=== PATIENT | male | born 1975 | race Two or more races ===

== ENCOUNTER 2021-11-19 23:40 | Emergency (ER) | payer OTHER ==
[2021-11-19] MEDS ORDERED: SODIUM CHLORIDE 0.9% 1,000 ML IV STA (23:51)
[2021-11-20] MEDS ORDERED: INSULIN REGULAR HUMAN 100 UNIT/1 ML 10 ML MDV IVP STA
[2021-11-20 00:13] LABS: VBG BASE EXCESS -0.8 mmol/L (-2 - +2); VBG HCO3 25.3 mmol/L (23-28); VBG PCO2 46.6 mmHg (41-51); VBG PH 7.353 (7.31-7.41); VBG PO2 30.3 mmHg (25-47); VBG TOTAL CO2 26.8 mmol/L (24-29)
[2021-11-20 00:14] LABS: VBG OXYGEN SATURATION 64.1 % (60-80)
[2021-11-20 00:15] LABS: BASOPHILS % (AUTO) 0.8 %; EOSINOPHILS # (AUTO) 0.1 10^3/uL (0.0-0.7); EOSINOPHILS % (AUTO) 1.7 %; HCT - HEMATOCRIT 51.5 % (42.0-52.0); HGB - HEMOGLOBIN 17.8 g/dL (14.0-18.0); LYMPHOCYTES # (AUTO) 1.8 10^3/uL (1.5-3.5); LYMPHOCYTES % (AUTO) 35.1 %; MEAN CORPUSCULAR HEMOGLOBIN 30.6 pg (27.0-31.0); MEAN CORPUSCULAR HGB CONC 34.6 g/dL (32.0-36.0); MEAN CORPUSCULAR VOLUME 88.5 fL (80.0-94.0); MEAN PLATELET VOLUME 12.4 fL (7.4-11.4); MONOCYTES # (AUTO) 0.6 10^3/uL (0.0-1.0); MONOCYTES % (AUTO) 11.4 %; NEUTROPHILS # (AUTO) 2.6 10^3/uL (1.5-6.6); NEUTROPHILS % (AUTO) 50.4 %; PLT - PLATELET COUNT 138 10^3/uL (130-450); RED BLOOD COUNT 5.82 10^6/uL (4.70-6.10); RED CELL DISTRIBUTION WIDTH 12.6 % (12.0-15.0); WHITE BLOOD COUNT 5.2 x10^3/uL (4.8-10.8)
[2021-11-20 00:24] LABS: ALBUMIN 4.7 g/dL (3.2-5.5); ALBUMIN/GLOBULIN RATIO 1.3 (1.0-2.2); ALKALINE PHOSPHATASE 118 IU/L (42-121); ALT ALANINE AMINOTRANSFERASE 32 IU/L (10-60); AST ASPARTATE AMINOTRANSFERASE 21 IU/L (10-42); BILIRUBIN,TOTAL 0.7 mg/dL (0.2-1.0); BUN - BLOOD UREA NITROGEN 13 mg/dL (6-20); CALCIUM 9.7 mg/dL (8.5-10.3); CARBON DIOXIDE - CO2 28 mmol/L (21-32); CHLORIDE 95 mmol/L (101-111); CREATININE 0.9 mg/dL (0.6-1.2); GFR - MDRD 91 (>89); GLUCOSE 488 mg/dL (70-100); LIPASE 31 U/L (22-51); SODIUM 135 mmol/L (135-145); TOTAL PROTEIN 8.2 g/dL (6.7-8.2)
[2021-11-20 01:11] LABS: KETONES, SERUM (ACETEST) NEGATIVE (NEGATIVE)
--- NOTE | 2021-11-20 01:39 | ED Physician Documentation ---
History of Present Illness - Stated complaint Stated Complaint: HIGH BLOOD SUGAR - Chief complaint Chief Complaint: General - History obtained from History obtained from: Patient - Additonal information Additional information: 46-year-old male with past medical history of diabetes, previously controlled on diet alone, presents with hyperglycemia from home. Patient states that he has had fatigue and generalized malaise over the past couple of days and subjective fingerstick and it was elevated. denies fever/chills, cp, soa, cough, n/v, abd pain, diarrhea. Review of Systems Ten Systems: 10 systems reviewed and negative Constitutional: reports: Fatigue. denies: Fever, Chills Cardiac: denies: Chest pain / pressure Respiratory: denies: Dyspnea, Cough GI: denies: Abdominal Pain, Nausea, Vomiting, Diarrhea : reports: Frequency. denies: Dysuria PD PAST MEDICAL HISTORY - Past Medical History Past Medical History: Yes Cardiovascular: Hypertension, High cholesterol Endocrine/Autoimmune: Type 2 diabetes - Past Surgical History Past Surgical History: No - Present Medications Home Medications: Ambulatory Orders Medication Instructions Recorded Confirmed No Known Home Medications 11/19/21 11/19/21 - Allergies Allergies/Adverse Reactions: Allergies Allergy/AdvReac Type Severity Reaction Status Date / Time latex Allergy Rash Verified 11/19/21 23:48 - Social History Does the pt smoke?: No Smoking Status: Never smoker Does the pt drink ETOH?: No Does the pt have substance abuse?: No - Immunizations Immunizations are current?: Yes PD ED PE NORMAL - Vitals Vital signs reviewed: Yes - General General: Alert and oriented X 3, No acute distress, Well developed/nourished - HEENT HEENT: Atraumatic, PERRL, EOMI - Neck Neck: Supple, no meningeal sign - Cardiac Cardiac: RRR - Respiratory Respiratory: No respiratory distress, Clear bilaterally - Abdomen Abdomen: Non tender, Non distended - Back Back: No CVA TTP - Derm Derm: Normal color - Extremities Extremities: No deformity, No edema - Neuro Neuro: Alert and oriented X 3, No motor deficit, No sensory deficit - Psych Psych: Normal mood, Normal affect Results - Vitals Vitals: Vital Signs - 24 hr 11/19/21 11/20/21 23:45 00:58 Temperature 36.0 C L Heart Rate 94 88 Respiratory 18 18 Rate Blood Pressure 133/87 H 132/87 H O2 Saturation 99 98 Oxygen O2 Source Room air - Labs Labs: Laboratory Tests 11/19/21 11/19/21 11/19/21 23:52 23:52 23:52 WBC 5.2 RBC 5.82 Hgb 17.8 Hct 51.5 MCV 88.5 MCH 30.6 MCHC 34.6 RDW 12.6 Plt Count 138 MPV 12.4 H Neut # (Auto) 2.6 Lymph # (Auto) 1.8 Vance # (Auto) 0.6 Eos # (Auto) 0.1 Baso # (Auto) 0.0 Absolute Nucleated RBC 0.00 Nucleated RBC % 0.0 VBG pH 7.353 VBG pCO2 46.6 VBG pO2 30.3 VBG HCO3 25.3 VBG Total CO2 26.8 VBG O2 Saturation 64.1 VBG Base Excess -0.8 Sodium 135 Potassium 4.0 Chloride 95 L Carbon Dioxide 28 Anion Gap 12.0 BUN 13 Creatinine 0.9 Estimated GFR (MDRD) 91 Glucose 488 H POC Whole Bld Glucose Calcium 9.7 Total Bilirubin 0.7 AST 21 ALT 32 Alkaline Phosphatase 118 Total Protein 8.2 Albumin 4.7 Globulin 3.5 Albumin/Globulin Ratio 1.3 Lipase 31 Serum Ketones NEGATIVE 11/19/21 11/20/21 23:52 01:03 WBC RBC Hgb Hct MCV MCH MCHC RDW Plt Count MPV Neut # (Auto) Lymph # (Auto) Vance # (Auto) Eos # (Auto) Baso # (Auto) Absolute Nucleated RBC Nucleated RBC % VBG pH VBG pCO2 VBG pO2 VBG HCO3 VBG Total CO2 VBG O2 Saturation VBG Base Excess Sodium Potassium Chloride Carbon Dioxide Anion Gap BUN Creatinine Estimated GFR (MDRD) Glucose POC Whole Bld Glucose 417 H 213 H Calcium Total Bilirubin AST ALT Alkaline Phosphatase Total Protein Albumin Globulin Albumin/Globulin Ratio Lipase Serum Ketones PD MEDICAL DECISION MAKING - ED course ED course: 46yM with pmh DM, p/w hyperglycemia without signs of end organ damage or DKA. Improved with IV insulin treatment. patient plans to f/u with his pmd for referral to endocrinology. return precautions given. Departure - Departure Disposition: Home, Self Care Clinical Impression: Hyperglycemia, Fatigue Condition: Good Instructions: Hyperglycemia Comments: You are seen in the emergency department for hyperglycemia. You need to follow- up with your primary doctor to establish a diabetes regimen. Return to the emergency department for any new or worsening symptoms or other concerns.
[2021-11-20 02:01] VITALS: BP 138/72
[2021-11-20 12:58] LABS: ESTIMATED AVERAGE GLUCOSE 312 mg/dL (70-100); HEMOGLOBIN A1c% 12.5 % (4.27-6.07)
== END 2021-11-20 02:09 | disposition home or self-care (01) ==
LOC: ED 23:40
DX: E11.65 Type 2 diabetes mellitus with hyperglycemia (principal); R53.83 Other fatigue; I10 Essential (primary) hypertension
CPT/HCPCS: 36415; 80053; 82009; 82803; 83036; 83690; 85025; 99283; J1815

== ENCOUNTER 2022-03-03 14:54 | Outpatient (CLI) | payer OTHER ==
--- NOTE | 2022-03-03 17:35 | CT Report ---
PROCEDURE: Abdomen/Pelvis WO INDICATIONS: FLANK PAIN TECHNIQUE: Noncontrast 5 mm thick sections acquired from the diaphragms to the symphysis. 5 mm coronal and sagi ttal reformats were then performed. For radiation dose reduction, the following was used: automated exposure control, adjustment of mA and/or kV according to patient size. COMPARISON: None. FINDINGS: Image quality: Excellent. ABDOMEN: Lung bases: Lung bases are clear. Heart size is normal. Solid organs: Liver and spleen are normal in size. Gallbladder is unremarkable. Pancreas is normal in contours. No adrenal nodules. Kidneys are normal in size, without hydronephrosis or nephrolithi asis. Peritoneum and bowel: Unenhanced bowel loops demonstrate normal wall thickness and caliber. No free fluid or air. Nodes and vessels: No retroperitoneal or mesenteric adenopathy by size criteria. Aorta and inferior vena cava are normal in caliber. Miscellaneous: No ventral hernias. PELVIS: Genitourinary: Bladder wall thickness is normal. Miscellaneous: No inguinal hernias or adenopathy. Bones: No suspicious bony lesions. No vertebral body compression fractures. IMPRESSION: 1. No evidence of renal stone, ureteral stone, or hydronephrosis. 2. No evidence of acute diverticulitis. No evidence of acute abdominal process. Reviewed by: Herve Staples MD on 03/03/2022 5:34 PM PDT Approved by: Herve Staples MD on 03/03/2022 5:34 PM PDT Station ID: [id number]
== END 2022-03-03 14:55 | disposition home or self-care (01) ==
LOC: DI 14:54
PROVIDERS: ATTEND Student in an Organized Health Care Education/Training Program
DX: R10.9 Unspecified abdominal pain (principal)

== ENCOUNTER 2022-03-11 11:09 | Emergency (ER) | payer OTHER ==
--- NOTE | 2022-03-11 11:39 | ED Physician Documentation ---
History of Present Illness - Stated complaint Stated Complaint: C+,FEVER,RUNNY NOSE, HEADACH - Chief complaint Chief Complaint: General - Additonal information Additional information: 46-year-old male who is type II diabetic Presents to the emergency department with cough, congestion and myalgias. He did test positive for COVID-19 on the th of this month but began getting symptoms on the . He is fully vaccinated and boosted for COVID-19. He is interested in oral antiviral therapy. Meds: Trulicity, metformin, Jardiance, statin, losartan Social: No tobacco. Rare EtOH Review of Systems Constitutional: reports: Fever, Chills, Myalgias, Fatigue Eyes: reports: Reviewed and negative Nose: reports: Congestion Throat: reports: Dental pain / toothache Cardiac: reports: Reviewed and negative Respiratory: reports: Cough. denies: Dyspnea GI: reports: Reviewed and negative : reports: Reviewed and negative Skin: reports: Reviewed and negative PD PAST MEDICAL HISTORY - Past Medical History Cardiovascular: Hypertension, High cholesterol Endocrine/Autoimmune: Type 2 diabetes - Past Surgical History Past Surgical History: No - Present Medications Home Medications: Ambulatory Orders Medication Instructions Recorded Confirmed metFORMIN [Glucophage] 500 mg PO BID #60 tablet 11/20/21 - Allergies Allergies/Adverse Reactions: Allergies Allergy/AdvReac Type Severity Reaction Status Date / Time latex Allergy Rash Verified 03/11/22 11:18 - Social History Does the pt smoke?: No Smoking Status: Never smoker Does the pt drink ETOH?: No Does the pt have substance abuse?: No - Immunizations Immunizations are current?: Yes Results - Vitals Vitals: Vital Signs - 24 hr 03/11/22 11:16 Temperature 36.6 C Heart Rate 78 Respiratory 16 Rate Blood Pressure 138/86 H O2 Saturation 98 Oxygen O2 Source Room air PD MEDICAL DECISION MAKING - ED course Complexity details: reviewed results, re-evaluated patient, considered differential, d/w patient ED course: This is a 46-year-old diabetic male who presents to the emergency department requesting oral antiviral therapy for the treatment of COVID-19 infection (postivie hoem test yesterday). He is doubly vaccinated as well as boosted. Symptoms began 5 days ago. Cardiopulmonary auscultation is unremarkable without hypoxia. He would not meet the criteria for hospitalization. We did discuss the use of oral antivirals. This gentleman's only relative contraindication to pack Slo-Bid administration is the presence of statin therapy. I did review his labs from October 2021 and do note normal renal function. At this time the patient does wish to prove proceed with oral Paxil of administration. He was given the EUA guide and recommendations. Otherwise emergent return precautions discussed Departure - Departure Disposition: Home, Self Care Clinical Impression: COVID-19 virus infection Condition: Stable Record reviewed to determine appropriate education?: Yes Comments: Josh you are seen today in the emergency department for your COVID-19 infection. You have elected to begin oral antiviral therapy with a medication called Paxlovid. You do take this medication as directed for the next 5 days. I do recommend that you stop or reduce your dose of statin by half while you are on this medication. In general however I would expect that you continue to do well with your COVID- 19 infection. Stay well-hydrated. Continue to take all your medications for diabetes. If at any point you develop sudden severe shortness of air, have current chest pain or any fainting episodes and please return immediately to the ER for a second evaluation
[2022-03-11] MEDS ORDERED: NIRMATRELVIR/RITONAVIR PREPACK PO STA (12:05)
[2022-03-11 12:21] VITALS: BP 125/76
== END 2022-03-11 12:20 | disposition home or self-care (01) ==
LOC: ED 11:09
DX: U07.1 COVID-19 (principal); E11.9 Type 2 diabetes mellitus without complications; Z79.84 Long term (current) use of oral hypoglycemic drugs; I10 Essential (primary) hypertension
CPT/HCPCS: 99282; 99283; J3490; 80053; 83690; 85025

== ENCOUNTER 2022-08-31 16:27 | Outpatient (CLI) | payer OTHER ==
--- NOTE | 2022-08-31 18:18 | CT Report ---
PROCEDURE: HEAD WO INDICATIONS: HEADACHE TECHNIQUE: Noncontrast 4.5 mm thick angled axial sections acquired from the foramen magnum to the vertex. For r adiation dose reduction, the following was used: automated exposure control, adjustment of mA and/or kV according to patient size. COMPARISON: None. FINDINGS: Image quality: There is streak artifact seen through the skull base. CSF spaces: Basal cisterns are patent. No extra-axial fluid collections. Ventricles are normal in size and shape. Brain: No midline shift. No intracranial masses or hemorrhage. Mancera-white matter interface is norm al. Skull and face: Calvarium and visualized facial bones are intact, without suspicious lesions. Sinuses: Visualized sinuses and mastoids are clear. IMPRESSION: Normal noncontrast head CT, without an imaging explanation found for the patient's presenting symptom s. Reviewed by: Bony Banks MD on 08/31/2022 5:16 PM DIPAK Approved by: Bony Banks MD on 08/31/2022 5:16 PM DIPAK Station ID: [id number]
== END 2022-08-31 16:28 | disposition home or self-care (01) ==
LOC: DI 16:27
PROVIDERS: ATTEND Physician Assistant
DX: R51.9 Headache, unspecified (principal); R55 Syncope and collapse; R06.02 Shortness of breath

== ENCOUNTER 2022-09-25 12:07 | Outpatient (CLI) | payer OTHER ==
[2022-09-25] MEDS ORDERED: iohexoL-300 100 ML VIAL ONE (15:55)
[2022-09-25] MEDS ORDERED: DIATRIZOATE MEGLU/DIATRIZO SOD 30 ML BOTTLE PO ONE ×2 (15:55→18:25)
[2022-09-25] MEDS ORDERED: iohexoL-300 100 ML VIAL IVP ONE (18:24)
--- NOTE | 2022-09-25 21:06 | CT Report ---
PROCEDURE: ABDOMEN/PELVIS W INDICATIONS: LEFT SIDE ABD PAIN CONTRAST: 100ml omni 300 TECHNIQUE: After the administration of IV and oral contrast, 5 mm thick sections acquired from the diaphragms to the symphysis. 5 mm thick coronal and sagittal reformats were acquired. For radiation dose reducti on, the following was used: automated exposure control, adjustment of mA and/or kV according to martin ent size. COMPARISON: 03/03/2022 FINDINGS: Image quality: Excellent. ABDOMEN: Lung bases: Lung bases are clear. Heart size is normal. A small hiatal hernia is incidentally note d. Solid organs: Diffuse fatty liver infiltration can be seen. The liver demonstrates normal size and demonstrates no suspicious lesions. The spleen demonstrates normal size and demonstrates no suspicio us lesions. Gallbladder wall does not appear thickened. Biliary system is non dilated. Pancreas enhances normally. No adrenal nodules. Kidneys demonstrate normal size and enhancement, without hyd ronephrosis. Peritoneum and bowel: A moderate amount of stool is seen within the colon. Bowel loops demonstrate n ormal wall thickness and caliber. No free fluid or air. A normal appendix is incidentally noted. Nodes and vessels: No retroperitoneal or mesenteric adenopathy by size criteria. Aorta and inferior vena cava are normal in size. Miscellaneous: No ventral hernias. PELVIS: Genitourinary: Bladder wall thickness is normal. On the lateral view, there is a mild urachal remna nt seen, with superior bladder tethering, as on series 7 image 40. Miscellaneous: No inguinal hernias or adenopathy. Bones: No suspicious bony lesions. No vertebral body compression fractures. IMPRESSION: There is a moderate amount of stool seen within the colon. Please correlate with clinica l constipation. Incidental note is made of: Small hiatal hernia Mild urachal remnant with bladder tethering Reviewed by: Bony Banks MD on 09/25/2022 8:05 PM DIPAK Approved by: Bony Banks MD on 09/25/2022 8:05 PM DIPAK Station ID: [id number]
== END 2022-09-25 12:08 | disposition home or self-care (01) ==
LOC: DI 12:07
PROVIDERS: ATTEND Family Medicine
DX: R10.9 Unspecified abdominal pain (principal); R06.02 Shortness of breath
CPT/HCPCS: 71046; 74177; Q9963; Q9967

== ENCOUNTER 2022-09-25 15:47 | Outpatient (CLI) | payer OTHER ==
--- NOTE | 2022-09-25 17:58 | XRAY Report ---
PROCEDURE: Chest 2 View X-Ray INDICATIONS: SHORTNESS OF BREATH TECHNIQUE: 2 view(s) of the chest. COMPARISON: None. FINDINGS: Surgical changes and devices: None. Lungs and pleura: No pleural effusions or pneumothorax. Lungs are clear. Mediastinum: Mediastinal contours are normal. Heart size is normal. Bones and chest wall: No suspicious bony abnormalities. Soft tissues appear unremarkable. IMPRESSION: No acute cardiopulmonary abnormality. Reviewed by: Albaro Veliz MD on 09/25/2022 5:57 PM PDT Approved by: Albaro Veliz MD on 09/25/2022 5:57 PM PDT Station ID: [id number]
== END 2022-09-25 15:48 | disposition home or self-care (01) ==
LOC: DI 15:47
PROVIDERS: ATTEND Physician Assistant
DX: R06.02 Shortness of breath (principal)

== ENCOUNTER 2024-07-25 16:45 | Outpatient (CLI) | payer SELFPAY | END 2024-07-25 23:59 | disposition EMS.NT | LOC: EMS 16:45 | DX: S10.81XA Abrasion of other specified part of neck, initial encounter (principal); Y04.8XXA Assault by other bodily force, initial encounter ==